=== PATIENT | male | born 1955 | race Caucasian/White ===

== ENCOUNTER 2022-11-29 20:48 | Emergency (ER) | payer SELFPAY ==
[2022-11-29] MEDS ORDERED: Lidocaine 1% w/Epinephrine 1:100K 20 ML VIAL ONE (22:19)
[2022-11-29] MEDS ORDERED: Lisinopril 10 MG TAB ONE (22:19)
[2022-11-29] MEDS ORDERED: Boostrix 0.5 ML (Tdap) VIAL (>/=7 yrs of age) ONE (22:19)
== END 2022-11-29 23:59 | disposition home or self-care (01) ==
LOC: ERS 20:48
DX: L02.31 Cutaneous abscess of buttock (principal); I10 Essential (primary) hypertension; F17.210 Nicotine dependence, cigarettes, uncomplicated
CPT/HCPCS: 10060; 87070; 87205; 90471; 90715

== ENCOUNTER 2023-05-22 19:13 | Inpatient (IN) | payer MEDICARE, SELFPAY ==
[2023-05-22 21:02] LABS: #Eosinphils 0.3 thou/uL (0.0-0.7); #Monocytes 0.4 thou/uL (0.11-0.59); #Neutrophils 4.3 thou/uL (1.40-6.50); %Basophils 0.5 % (0.0-1.0); %Eosinophils 5.1 % (0.0-10.0); %Lymphocytes 21.4 % (21.0-51.0); %Monocytes 5.6 % (0.0-10.0); %Neutrophils 67.1 % (42.0-75.0); Hematocrit 29.9 % (42.0-52.0); Hemoglobin 9.5 g/dL (14.0-18.0); Mean Corpuscular HGB CONC 31.8 g/dL (32.0-36.0); Mean Corpuscular Hemoglobin 28.4 pg (27.0-31.0); Mean Corpuscular Volume 89.3 fl (78.0-98.0); Mean Platelet Volume 9.9 fL (7.4-10.4); Platelet Count 299 10x3/uL (130-400); RBC Distribution Width 15.9 % (11.5-14.5); Red Blood Cell (RBC) Count 3.35 mill/uL (4.70-6.10); White Blood Cell (WBC) Count 6.5 10x3/uL (4.8-10.8)
[2023-05-22 21:16] LABS: INR-International Normal Ratio 1.1; PTT 34.6 sec (22.9-36.1); Prothrombin Time 14.9 sec (12.0-14.7)
[2023-05-22 21:28] LABS: ALT (SGPT) Less than 7 U/L (8-55); AST (SGOT) 10 U/L (5-34); Albumin 3.4 g/dL (3.4-4.8); Alkaline Phosphatase 88 U/L (40-110); Anion Gap 13 mmol/L (10-20); BUN (Urea Nitrogen) 27 mg/dL (8.4-25.7); Bilirubin, Total Less than 0.2 mg/dL (0.2-1.2); Calc. Creatinine Clearance 0 mL/min (70-130); Calcium 8.8 mg/dL (7.8-10.44); Carbon Dioxide 25 mmol/L (23-31); Chloride 107 mmol/L (98-107); Estimated GFR 74; Globulin 2.6 g/dL (2.4-3.5); Glucose 91 mg/dL (80-115); Potassium 3.4 mmol/L (3.5-5.1); Sodium 142 mmol/L (136-145)
[2023-05-22] MEDS ORDERED: Senokot S 8.6-50 MG TAB PO PRN (22:09)
[2023-05-22] MEDS ORDERED: Ondansetron ODT 4 MG TAB PO PRN (22:09)
[2023-05-22] MEDS ORDERED: Melatonin 3 MG TAB PO PRN (22:09)
[2023-05-22] MEDS: Dextrose 5%-Lactated Ringers 1,000 ML IV SCH (23:00)
[2023-05-22] MEDS ORDERED: Pantoprazole 40 MG VIAL IVP SCH (23:45)
[2023-05-23] MEDS ORDERED: Pantoprazole 40 MG VIAL ONE
[2023-05-23] MEDS ORDERED: Nitroglycerin 2% Ointment 1 INCH/1 GM Packet ONE (02:37)
[2023-05-23] MEDS ORDERED: Nitroglycerin 2% Ointment 1 INCH/1 GM Packet TOP SCH (02:45)
[2023-05-23] MEDS ORDERED: hydrALAZINE 25 MG TAB PO PRN (04:20)
[2023-05-23 04:32] VITALS: BMI 18.8
[2023-05-23] MEDS: Acetaminophen 325 MG TAB PO PRN ×2 (04:48→20:37)
[2023-05-23 05:19] LABS: #Eosinphils 0.3 thou/uL (0.0-0.7); #Monocytes 0.3 thou/uL (0.11-0.59); #Neutrophils 3.8 thou/uL (1.40-6.50); %Basophils 0.5 % (0.0-1.0); %Eosinophils 5.4 % (0.0-10.0); %Lymphocytes 24.1 % (21.0-51.0); %Monocytes 5.4 % (0.0-10.0); %Neutrophils 64.3 % (42.0-75.0); Hematocrit 28.6 % (42.0-52.0); Mean Corpuscular HGB CONC 31.5 g/dL (32.0-36.0); Mean Corpuscular Hemoglobin 28.3 pg (27.0-31.0); Mean Corpuscular Volume 89.9 fl (78.0-98.0); Mean Platelet Volume 9.7 fL (7.4-10.4); Platelet Count 280 10x3/uL (130-400); RBC Distribution Width 15.9 % (11.5-14.5); Red Blood Cell (RBC) Count 3.18 mill/uL (4.70-6.10); White Blood Cell (WBC) Count 5.9 10x3/uL (4.8-10.8)
[2023-05-23 05:40] LABS: Anion Gap 12 mmol/L (10-20); BUN (Urea Nitrogen) 22 mg/dL (8.4-25.7); Calc. Creatinine Clearance 75 mL/min (70-130); Calcium 8.8 mg/dL (7.8-10.44); Carbon Dioxide 24 mmol/L (23-31); Chloride 109 mmol/L (98-107); Estimated GFR 88; Glucose 82 mg/dL (80-115); Potassium 3.8 mmol/L (3.5-5.1); Sodium 141 mmol/L (136-145)
[2023-05-23] MEDS: Dextrose 5%-Lactated Ringers 1,000 ML IV SCH (08:53)
[2023-05-23] MEDS: NIFEdipine XL 60 MG TAB PO SCH (08:54)
[2023-05-23] MEDS: Lisinopril 20 MG TAB PO SCH (08:54)
[2023-05-23] MEDS: Potassium Chloride 10 MEQ TAB PO SCH (08:54)
[2023-05-23] MEDS ORDERED: Famotidine 20 MG TAB PO SCH (09:00)
[2023-05-23] MEDS ORDERED: Carvedilol 25 MG TAB PO SCH (09:00)
[2023-05-23] MEDS: Pantoprazole 40 MG VIAL IVP SCH (20:37)
[2023-05-23] MEDS: hydrALAZINE 25 MG TAB PO SCH (20:38)
[2023-05-23] MEDS: cloNIDine 0.1 MG TAB PO SCH (22:26)
[2023-05-23] MEDS: Carvedilol 25 MG TAB PO SCH (22:26)
[2023-05-23] MEDS ORDERED: hydrALAZINE 25 MG TAB PO SCH (22:30)
[2023-05-24 04:50] LABS: Hematocrit 27.7 % (42.0-52.0); Hemoglobin 8.9 g/dL (14.0-18.0); Platelet Count 287 10x3/uL (130-400)
[2023-05-24] MEDS ORDERED: Acetaminophen 325 MG TAB ONE (08:57)
[2023-05-24] MEDS: Acetaminophen 325 MG TAB PO PRN ×3 (08:58→20:38)
[2023-05-24] MEDS ORDERED: hydrALAZINE 20 MG/ML VIAL ONE (09:15)
[2023-05-24] MEDS ORDERED: PROPOFOL 200 MG/20 ML VIAL ONE (10:03)
[2023-05-24] MEDS ORDERED: Promethazine HCl 25 MG/ML VIAL IM PRN (10:21)
[2023-05-24] MEDS ORDERED: Ondansetron HCl/PF 4 MG/2 ML Vial IVP PRN (10:21)
[2023-05-24] MEDS: Potassium Chloride 10 MEQ TAB PO SCH (11:11)
[2023-05-24] MEDS: Lisinopril 20 MG TAB PO SCH (11:11)
[2023-05-24] MEDS: NIFEdipine XL 60 MG TAB PO SCH (11:13)
[2023-05-24] MEDS: Pantoprazole 40 MG VIAL IVP SCH ×2 (11:14→20:37)
[2023-05-24] MEDS: Carvedilol 25 MG TAB PO SCH ×2 (14:20→20:37)
[2023-05-24] MEDS: hydrALAZINE 25 MG TAB PO SCH ×4 (14:21→20:40)
[2023-05-24] MEDS ORDERED: GoLYTELY 4,000 ml Bottle PO SCH (16:00)
[2023-05-24] MEDS: cloNIDine 0.1 MG TAB PO SCH (20:38)
[2023-05-25] MEDS: Acetaminophen 325 MG TAB PO PRN ×2 (03:04→14:37)
[2023-05-25 05:16] LABS: Hematocrit 29.1 % (42.0-52.0); Hemoglobin 9.5 g/dL (14.0-18.0); Platelet Count 308 10x3/uL (130-400)
[2023-05-25] MEDS ORDERED: PROPOFOL 200 MG/20 ML VIAL ONE (07:57)
[2023-05-25] MEDS ORDERED: Lidocaine 1% PF 5 ML VIAL ONE (07:57)
[2023-05-25] MEDS ORDERED: Ondansetron HCl/PF 4 MG/2 ML Vial IVP PRN (08:06)
[2023-05-25] MEDS ORDERED: Promethazine HCl 25 MG/ML VIAL IM PRN (08:06)
[2023-05-25] MEDS: NIFEdipine XL 60 MG TAB PO SCH (10:22)
[2023-05-25] MEDS: Potassium Chloride 10 MEQ TAB PO SCH (10:22)
[2023-05-25] MEDS: Lisinopril 20 MG TAB PO SCH (10:23)
[2023-05-25] MEDS: hydrALAZINE 25 MG TAB PO SCH ×3 (10:23→22:53)
[2023-05-25] MEDS: Carvedilol 25 MG TAB PO SCH ×2 (10:24→22:53)
[2023-05-25] MEDS: Pantoprazole 40 MG VIAL IVP SCH (10:24)
[2023-05-25] MEDS: traMADol HCl 50 MG TAB PO PRN (17:01)
[2023-05-25] MEDS: cloNIDine 0.1 MG TAB PO SCH (22:53)
[2023-05-26] MEDS: traMADol HCl 50 MG TAB PO PRN ×2 (04:16→16:37)
[2023-05-26] MEDS ORDERED: traMADol HCl 50 MG TAB PO SCH (08:30)
[2023-05-26] MEDS: Carvedilol 25 MG TAB PO SCH ×2 (08:58→20:46)
[2023-05-26] MEDS: NIFEdipine XL 60 MG TAB PO SCH (08:59)
[2023-05-26] MEDS: Lisinopril 20 MG TAB PO SCH (08:59)
[2023-05-26] MEDS: hydrALAZINE 25 MG TAB PO SCH ×3 (09:00→20:46)
[2023-05-26] MEDS: Potassium Chloride 10 MEQ TAB PO SCH (09:01)
[2023-05-26 11:23] LABS: Hemoglobin 8.7 g/dL (14.0-18.0)
[2023-05-26] MEDS ORDERED: D3 PO SCH (17:00)
[2023-05-26] MEDS ORDERED: [UNRECOGNIZED DRUG - OTHER] PO SCH (17:00)
[2023-05-26] MEDS ORDERED: MINERALS PO SCH (17:00)
[2023-05-26] MEDS: Acetaminophen 325 MG TAB PO PRN (20:44)
[2023-05-26] MEDS: cloNIDine 0.1 MG TAB PO SCH (20:49)
[2023-05-27] MEDS: traMADol HCl 50 MG TAB PO PRN ×4 (00:02→23:46)
[2023-05-27 04:05] LABS: Bacteria/HPF None Seen HPF (None Seen); Bilirubin Negative (Negative); Blood, Urine 3+ (Negative); CAUTI Indications for Culture Dysuria,urgency,freq; Clarity Extra Turbid (Clear); Glucose, Urine (Dipstick) Normal (Negative); Ketone, Urine Negative (Negative); Leukocyte 500 Leu/uL (Negative); Nitrite Negative (Negative); Protein, Urine (Dipstick) 200 mg/dL (Neg-Trace); RBC/HPF Greater than 50 HPF (0-3); Specific Gravity, Urine 1.008 (1.002-1.036); Squamous Epithelial None Seen HPF (0-3); Urobilinogen Normal mg/dL (Less than 2); WBC/HPF Greater than 50 HPF (0-3); Yeast-Budding 2+ HPF (None Seen)
[2023-05-27 04:06] LABS: Urine Culture Reflex Yes Yes
[2023-05-27] MEDS: Potassium Chloride 10 MEQ TAB PO SCH (09:11)
[2023-05-27] MEDS: hydrALAZINE 25 MG TAB PO SCH ×3 (10:58→20:33)
[2023-05-27] MEDS: Carvedilol 25 MG TAB PO SCH ×2 (11:33→20:33)
[2023-05-27] MEDS: Lisinopril 20 MG TAB PO SCH (13:31)
[2023-05-27] MEDS: NIFEdipine XL 60 MG TAB PO SCH (14:53)
[2023-05-27] MEDS: Acetaminophen 325 MG TAB PO PRN (20:32)
[2023-05-27] MEDS: cloNIDine 0.1 MG TAB PO SCH (20:33)
[2023-05-28] MEDS: traMADol HCl 50 MG TAB PO PRN ×2 (08:17→17:30)
[2023-05-28] MEDS: NIFEdipine XL 60 MG TAB PO SCH (08:21)
[2023-05-28] MEDS: Carvedilol 25 MG TAB PO SCH ×2 (08:22→23:44)
[2023-05-28] MEDS: Lisinopril 20 MG TAB PO SCH (08:22)
[2023-05-28] MEDS: hydrALAZINE 25 MG TAB PO SCH ×2 (08:24→15:23)
[2023-05-28] MEDS: Potassium Chloride 10 MEQ TAB PO SCH (08:26)
[2023-05-28] MEDS: Acetaminophen 325 MG TAB PO PRN ×2 (11:00→22:10)
[2023-05-28] MEDS: cloNIDine 0.1 MG TAB PO SCH (23:44)
[2023-05-29] MEDS: hydrALAZINE 25 MG TAB PO SCH ×2 (00:23→10:19)
[2023-05-29] MEDS: Acetaminophen 325 MG TAB PO PRN (04:00)
[2023-05-29 04:44] LABS: #Eosinphils 0.2 thou/uL (0.0-0.7); #Monocytes 0.4 thou/uL (0.11-0.59); #Neutrophils 5.9 thou/uL (1.40-6.50); %Basophils 0.4 % (0.0-1.0); %Eosinophils 2.1 % (0.0-10.0); %Lymphocytes 16.6 % (21.0-51.0); %Monocytes 5.3 % (0.0-10.0); %Neutrophils 75.3 % (42.0-75.0); Hematocrit 27.6 % (42.0-52.0); Hemoglobin 8.7 g/dL (14.0-18.0); Mean Corpuscular HGB CONC 31.5 g/dL (32.0-36.0); Mean Corpuscular Hemoglobin 28.1 pg (27.0-31.0); Mean Platelet Volume 9.6 fL (7.4-10.4); Platelet Count 282 10x3/uL (130-400); RBC Distribution Width 16.1 % (11.5-14.5); White Blood Cell (WBC) Count 7.8 10x3/uL (4.8-10.8)
[2023-05-29 05:03] LABS: Anion Gap 5 mmol/L (10-20); BUN (Urea Nitrogen) 18 mg/dL (8.4-25.7); Calc. Creatinine Clearance 79 mL/min (70-130); Calcium 8.7 mg/dL (7.8-10.44); Carbon Dioxide 25 mmol/L (23-31); Chloride 106 mmol/L (98-107); Estimated GFR 94; Glucose 84 mg/dL (80-115); Potassium 4.1 mmol/L (3.5-5.1); Sodium 132 mmol/L (136-145)
[2023-05-29] MEDS: Carvedilol 25 MG TAB PO SCH (10:18)
[2023-05-29] MEDS: NIFEdipine XL 60 MG TAB PO SCH (10:18)
[2023-05-29] MEDS: Lisinopril 20 MG TAB PO SCH (10:19)
[2023-05-29] MEDS: Potassium Chloride 10 MEQ TAB PO SCH (10:19)
[2023-05-29 11:36] VITALS: BP 153/86; TEMP 97.6
== END 2023-05-29 14:40 | DRG 378 ==
LOC: ERS 19:13 → ERHOLD 22:13 → 2SE 05-23 03:14
PROVIDERS: ADMIT Student in an Organized Health Care Education/Training Program; ATTEND Internal Medicine
PROC: 0W3P8ZZ Control Bleeding in Gastrointestinal Tract, Via Natural or Artificial Opening Endoscopic (ICD-10-PCS; principal; 2023-05-24)
PROC: 0DBK8ZZ Excision of Ascending Colon, Via Natural or Artificial Opening Endoscopic (ICD-10-PCS; 2023-05-25)
PROC: 0DBL8ZZ Excision of Transverse Colon, Via Natural or Artificial Opening Endoscopic (ICD-10-PCS; 2023-05-25)
PROC: 0DBN8ZZ Excision of Sigmoid Colon, Via Natural or Artificial Opening Endoscopic (ICD-10-PCS; 2023-05-25)
PROC: 0DBM8ZZ Excision of Descending Colon, Via Natural or Artificial Opening Endoscopic (ICD-10-PCS; 2023-05-25)
DX: K92.1 Melena (principal); D62 Acute posthemorrhagic anemia; I50.32 Chronic diastolic (congestive) heart failure; Z68.1 Body mass index [BMI] 19.9 or less, adult; E44.0 Moderate protein-calorie malnutrition; K31.811 Angiodysplasia of stomach and duodenum with bleeding; F17.210 Nicotine dependence, cigarettes, uncomplicated; R62.7 Adult failure to thrive; E87.6 Hypokalemia; I11.0 Hypertensive heart disease with heart failure; K29.80 Duodenitis without bleeding; K63.5 Polyp of colon; K57.30 Diverticulosis of large intestine without perforation or abscess without bleeding; K64.8 Other hemorrhoids; K31.819 Angiodysplasia of stomach and duodenum without bleeding; R33.9 Retention of urine, unspecified; Z86.711 Personal history of pulmonary embolism; Z98.890 Other specified postprocedural states; Z79.01 Long term (current) use of anticoagulants; Z79.899 Other long term (current) drug therapy
CPT/HCPCS: 36415; 36416; 80048; 80053; 81001; 82274; 85014; 85018; 85025; 85049; 85610; 85730; 86850; 86900; 86901; 87077; 87086; 87186; 88305; 93005; 97139; C9113; J0360; J2704